=== PATIENT | female | born 1980 | race Two or more races ===

== ENCOUNTER 2023-07-28 20:54 | Emergency (ER) | payer OTHER ==
[2023-07-28 21:02] VITALS: BP 104/62; PULSE 79; RESP 20; TEMP 97.7; BMI 32.0
[2023-07-28 22:02] LABS: BASO % 0.9 % (0-2.0); EOS % 2.6 % (0-4.5); HEMATOCRIT 26.6 % (32.4-45.2); LYMPH % 32.7 % (8-40); MEAN CELL VOLUME 62.5 fl (80-96); MEAN PLT VOLUME 8.6 fl (7.5-11.1); MONO % 8.8 % (3.8-10.2); PLATELET COUNT 280 10^3/uL (134-434); RBC 4.25 M/mm3 (3.60-5.2); RDW 27.6 % (11.6-15.6); WHITE BLOOD COUNT 6.3 K/mm3 (4.0-10.0)
[2023-07-28 22:12] LABS: MCH 18.7 pg (25.7-33.7)
[2023-07-28 22:23] LABS: CALCIUM 8.4 mg/dL (8.5-10.1)
[2023-07-28 22:24] LABS: ALBUMIN 3.5 g/dl (3.4-5.0); BLOOD UREA NITROGEN 13.5 mg/dL (7-18)
[2023-07-28 22:26] LABS: IRON SERUM 11 ug/dL (50-175)
[2023-07-28 22:27] LABS: CREATININE 0.6 mg/dL (0.55-1.3)
[2023-07-28 22:27] LABS: TOTAL IRON BINDING CAPACITY 430 ug/dL (250-450)
[2023-07-28 22:29] LABS: BILIRUBIN,TOTAL 0.5 mg/dL (0.2-1); TOT PROT 7.1 g/dl (6.4-8.2)
[2023-07-28 22:31] LABS: ANISOCYTOSIS 2+; MACROCYTOSIS 0; OVALOCYTE 2+; TEAR DROP CELLS 1+
== END 2023-07-28 23:00 | disposition home or self-care (01) ==
LOC: JER 20:54
DX: D50.9 Iron deficiency anemia, unspecified (principal); R06.02 Shortness of breath; R00.2 Palpitations
CPT/HCPCS: 36415; 80053; 83540; 83550; 84703; 85025; 93005; 93010; 99284-25